=== PATIENT | female | born 1985 | race Caucasian/White ===

== ENCOUNTER 2022-07-02 02:09 | Outpatient (CLI) | payer MEDICAID, SELFPAY ==
--- NOTE | 2022-07-02 09:15 | DI.US_ITS ---
Exam(s) US OB 1ST TRIMESTER EXAM: US OB 1ST TRIMESTER CLINICAL HISTORY: viability check, elderly multigravida 1st trimester, O09.521, Z34.90. COMPARISON: US POCUS EXAM from 06/25/2022 TECHNIQUE: Transabdominal Transvaginal first trimester obstetrical ultrasound performed. FINDINGS: A gestational sac is noted within the endometrial cavity. A pole is noted however appears malf ormed. The crown-rump length measurements correspond to 6 weeks 5 days which is much less than the e xpected 9 weeks 6 days. No cardiac activity is demonstrated. A yolk sac is seen. The cervix appears intact. There is no free fluid. IMPRESSION: Nonviable gestation. DATA REPOSITORY:
== END 2022-07-02 02:29 ==
LOC: DI 02:12
PROVIDERS: Visit Provider Advanced Practice Midwife
DX: O09.521 Supervision of elderly multigravida, first trimester (principal); O36.80X0 Pregnancy with inconclusive fetal viability, not applicable or unspecified; Z3A.01 Less than 8 weeks gestation of pregnancy
CPT/HCPCS: 76801

== ENCOUNTER 2022-07-02 13:55 | Outpatient (CLI) | payer MEDICAID, SELFPAY ==
[2022-07-02 14:34] LABS: HCG Quant, Pregnancy 11104 mIU/mL (1-3)
== END 2022-07-02 13:56 | disposition home or self-care (01) ==
PROVIDERS: Visit Provider Advanced Practice Midwife
DX: O46.91 Antepartum hemorrhage, unspecified, first trimester (principal); O36.4XX0 Maternal care for intrauterine death, not applicable or unspecified
CPT/HCPCS: 36415; 86850; 86900; 86901; 84702

== ENCOUNTER 2022-10-06 09:14 | Outpatient (REF) | payer MEDICAID, SELFPAY ==
--- NOTE | 2022-10-06 08:40 | PAPFT_PTH ---
PATIENT: Shasta Clarke LOC: [facility] U#:[id number] AGE/SX: 37/F ROOM: RE10/06/[address]: Silvana Mcpherson DO : 1985 BED: DIS: 10/06/2022 SPEC #: [id number] RECD: 10/06/22 12:54 STATUS: MARYSE REQ #: [id number] RIVER: 10/06/22 08:[address]: Silvana Mcpherson DEPT: [facility] Cytology RECD BY: Otilia Pena Tissues: 1 - CX/ENDOCX FOR PAP SMEARS Procedures: PAP THIN PREP/UVM Screening HPV DNA PROBE Comments: [id number]
== END 2022-10-06 09:15 | disposition home or self-care (01) ==
LOC: LBN 09:14
PROVIDERS: Visit Provider Obstetrics & Gynecology
DX: Z12.4 Encounter for screening for malignant neoplasm of cervix (principal); Z11.51 Encounter for screening for human papillomavirus (HPV)
CPT/HCPCS: 88142; 87624

== ENCOUNTER 2023-02-06 10:29 | Outpatient (REF) | payer MEDICAID, SELFPAY ==
[2023-02-06 11:57] LABS: *AMPHETAMINES SCREEN URINE Negative (Negative); *BARBITURATES SCREEN URINE Negative (Negative); *BENZODIAZEPINES SCREEN URINE Negative (Negative); Cannabinoids THC Negative (Negative); Cocaine Screen,Urine Negative (Negative); METHADONE URINE SCREEN Negative (Negative); OPIATES URINE SCREEN Negative (Negative)
[2023-02-06 12:01] LABS: Tricyclic Antidepressants Negative (Negative)
[2023-02-07 14:47] LABS: Chlamydia Result Negative (Negative); GC Result Negative (Negative)
[2023-02-11 13:03] LABS: Buprenorphine Negative ng/mL (Cutoff: 5.0); Norbuprenorphine Negative ng/mL (Cutoff: 2.5)
== END 2023-02-06 10:30 | disposition home or self-care (01) ==
LOC: LBN 10:29
PROVIDERS: Visit Provider Advanced Practice Midwife
DX: Z34.92 Encounter for supervision of normal pregnancy, unspecified, second trimester (principal); Z3A.18 18 weeks gestation of pregnancy; Z11.3 Encounter for screening for infections with a predominantly sexual mode of transmission
CPT/HCPCS: 80307; 80348; 87491; 87591; 87086

== ENCOUNTER 2023-02-16 04:40 | Outpatient (CLI) | payer MEDICAID, SELFPAY ==
[2023-02-16 10:17] LABS: Abs Immature Grans 0.04 10^3/uL (0.0-0.06); Absolute Basophil Count 0.05 10^3/uL (0.0-0.2); Absolute Eosinophil Count 0.37 10^3/uL (0.0-0.7); Absolute Lymphocyte Count 2.02 10^3/uL (1.2-3.4); Absolute Neutrophil Count 7.51 10^3/uL (1.2-6.7); Basophils % 0.5; Eosinophils % 3.5; HGB 11.7 g/dL (11.2-15.7); Immature Grans % 0.4; Lymphocytes % 19.3; MCH 32.2 pg (27.0-33.0); MCHC 34.4 % (32.0-36.0); MCV 94 fL (80-95); MPV 9.9 fL (8.0-11.0); Monocytes % 4.8; Neutrophils % 71.5; Platelet Count 302 10^3/uL (130-400); RBC 3.63 10^6/uL (3.93-5.22); RDW 13.4 % (11.7-14.6); RDW-SD 46.3 fL; WBC 10.49 10^3/uL (4.4-10.8)
[2023-02-16 11:02] LABS: ALT 15 U/L (14-59); AST 13 U/L (15-37); Albumin 3.5 g/dL (3.4-5.0); Alkaline Phosphatase 61 U/L (46-116); Anion Gap 8.4 mmol/L (3-11); BUN 7 mg/dL (7-18); Bilirubin, Total 0.3 mg/dL (0.2-1.0); CO2 24.6 mmol/L (21.0-32.0); CREATININE 0.6 mg/dL (0.55-1.02); Calcium 9.7 mg/dL (8.5-10.1); Chloride 103 mmol/L (98-107); Estimated GFR 117.75 (mL/min/1.73m2); Glucose 94 mg/dL (74-106); LDH 130 U/L (81-234); Potassium 3.8 mmol/L (3.5-5.1); Sodium 136 mmol/L (136-145); TSH (W/Ref FT4) 2.42 uIU/mL (0.36-3.74); Total Protein 7.2 g/dL (6.4-8.2)
[2023-02-17 09:21] LABS: Hepatitis B Surface Ag Negative (Negative)
[2023-02-17 10:01] LABS: HIV-1/2 Ag & Ab Screen Negative (Negative)
[2023-02-17 10:13] LABS: Hepatitis C Ab w Rflx HCV PCR Negative (Negative)
[2023-02-17 10:29] LABS: Varicella IgG Antibody Positive (See Note)
[2023-02-17 10:34] LABS: Rubella IgG Ab (UVM) Positive (See Note)
[2023-02-17 21:21] LABS: Syphilis IgG w/Reflex Nonreactive (Nonreactive)
== END 2023-02-16 04:41 | disposition home or self-care (01) ==
LOC: LBO 04:40
PROVIDERS: Visit Provider Advanced Practice Midwife
DX: Z34.91 Encounter for supervision of normal pregnancy, unspecified, first trimester (principal); I10 Essential (primary) hypertension; O09.521 Supervision of elderly multigravida, first trimester; Z34.90 Encounter for supervision of normal pregnancy, unspecified, unspecified trimester
CPT/HCPCS: 36415; 80053; 86787; 86803; 86850; 86900; 86901; 87340; 87389; 83615; 84443; 85025; 86762; 86780

== ENCOUNTER 2023-02-16 13:35 | Outpatient (REF) | payer MEDICAID, SELFPAY ==
[2023-02-16 13:38] LABS: Creatinine,Urine 50.88 mg/dL; PROTEIN 7.1 mg/dL (0.0-11.9)
[2023-02-16 13:40] LABS: Creatinine,24hr Ur 1.42 g/24hr (0.60-1.80); TOTAL PROTEIN,URINE TIMED 202.4 mg/24hr (0.0-149.1); Total Volume 2850 ml
== END 2023-02-16 13:36 | disposition home or self-care (01) ==
LOC: LBN 13:35
PROVIDERS: Visit Provider Advanced Practice Midwife
DX: O09.522 Supervision of elderly multigravida, second trimester (principal); O99.282 Endocrine, nutritional and metabolic diseases complicating pregnancy, second trimester; O16.2 Unspecified maternal hypertension, second trimester; E03.9 Hypothyroidism, unspecified; Z3A.18 18 weeks gestation of pregnancy
CPT/HCPCS: 81050; 82570; 84155

== ENCOUNTER 2023-02-23 02:18 | Outpatient (CLI) | payer MEDICAID, SELFPAY ==
[2023-02-23 08:55] LABS: Glucose,1 Hr (Glucola) 145 mg/dL (80-140)
== END 2023-02-23 02:19 | disposition home or self-care (01) ==
LOC: LBO 02:18
PROVIDERS: Visit Provider Advanced Practice Midwife
DX: O09.522 Supervision of elderly multigravida, second trimester (principal); O99.282 Endocrine, nutritional and metabolic diseases complicating pregnancy, second trimester; Z3A.21 21 weeks gestation of pregnancy
CPT/HCPCS: 36415; 82950

== ENCOUNTER → 2023-03-03 00:45 | Outpatient (CLI) | payer MEDICAID, SELFPAY ==
--- NOTE | 2023-03-03 06:30 | DI.US_ITS ---
Exam(s) US OB 2-3 TRIMESTER EXAM: US OB 2-3 TRIMESTER CLINICAL HISTORY: anatomy,Z34.91. TECHNIQUE: Transabdominal obstetrical ultrasound performed. COMPARISON: US US OB 1ST TRIMESTER from 07/02/2022 FINDINGS: Number of fetuses: One. position: Variable Placental grade: 1 Placental location: Posterior. Low lying placenta, 1.3 cm from the internal os. Cervix: Cervical canal closed 4.5 cm in length. BIOMETRIC DATA: BPD: 50mm = 21+ 0 weeks HC: 197mm = 21+ 6 weeks AC: 180mm = 22+ 6 weeks FL: 38mm = 22+1 weeks Cisterna Magna: 5 mm Cerebellum: 2 cm EFW: 503 grms 51% Composite Age: 22+2 weeks EDC by US: July 24 Heart Rate: 136BPM Amniotic fluid : Amount of fluid is within normal limits. ANATOMICAL SURVEY: Four-chambered heart: Unremarkable. LVOT: Unremarkable. RVOT: Not well seen. Left-sided stomach: Unremarkable. urinary bladder: Unremarkable. Bilateral kidneys: Unremarkable. Three-vessel cord: Unremarkable. Cord insertion: Unremarkable. Posterior fossa:Unremarkable. ventricles: Unremarkable. nose: Unremarkable. lips: Unremarkable. palate: Unremarkable. spine: Unremarkable. Two arms and two legs: Unremarkable. IMPRESSION: 1. Single live intrauterine measuring 22+ 2 weeks. 2. Normal anatomic survey. RVOT not well seen patient to return March 23 for additional im aging. 3. Low lying placenta. DATA REPOSITORY:
== END ==
PROVIDERS: Visit Provider Advanced Practice Midwife
DX: Z34.91 Encounter for supervision of normal pregnancy, unspecified, first trimester (principal)
CPT/HCPCS: 76805

== ENCOUNTER → 2023-03-09 03:05 | Outpatient (CLI) | payer MEDICAID, SELFPAY ==
--- NOTE | 2023-03-09 07:46 | DI.US_ITS ---
Exam(s) US OB F/U FACIAL/LVOT/RVOT EXAM: US OB F/U FACIAL/LVOT/RVOT CLINICAL HISTORY: f/u placenta from os,O44.42 AND DVOT. COMPARISON: US US OB 2-3 TRIMESTER from 03/03/2023 TECHNIQUE: Transabdominal obstetrical ultrasound performed. FINDINGS: Sonographic images demonstrate a single intrauterine gestation in variable position. heart rate motion is Dopplered at: 145 bpm. Four-chamber view, LV OT and RVOT were seen. nose/lips: Unremarkable. Placenta: Posterior. Placental tip measures 1.6 cm from the internal os. Amniotic fluid: Amount of fluid is within normal limits. IMPRESSION: Low lying placenta, 1.6 cm from the internal os. DATA REPOSITORY:
== END ==
PROVIDERS: Visit Provider Advanced Practice Midwife
DX: O44.42 Low lying placenta NOS or without hemorrhage, second trimester (principal)
CPT/HCPCS: 76815

== ENCOUNTER 2023-03-25 03:34 | Outpatient (CLI) | payer MEDICAID, SELFPAY ==
[2023-03-25 09:01] LABS: Glucose 1 Hour 112 mg/dL
[2023-03-25 11:19] LABS: Glucose 3 Hour 71 mg/dL
== END 2023-03-25 03:35 | disposition home or self-care (01) ==
LOC: LBO 03:35
PROVIDERS: Advanced Practice Midwife; Visit Provider Obstetrics & Gynecology
DX: Z34.92 Encounter for supervision of normal pregnancy, unspecified, second trimester (principal); I10 Essential (primary) hypertension
CPT/HCPCS: 36415; 82951; 84443

== ENCOUNTER → 2023-04-13 00:46 | Outpatient (CLI) | payer MEDICAID, SELFPAY ==
--- NOTE | 2023-04-13 06:45 | DI.US_ITS ---
Exam(s) US OB KORY WEIGHT EXAM: US OB KORY WEIGHT CLINICAL HISTORY: growth,f/u low lying placenta,O44.42,hypertension,I10. TECHNIQUE: Transabdominal obstetrical ultrasound performed. COMPARISON: US US OB 2-3 TRIMESTER from 03/03/2023 US US OB F/U FACIAL/LVOT/RVOT from 03/09/2023 FINDINGS:: Number of fetuses: One. position: Transverse with head toward maternal right Placental location: Posterior. No evidence of previa. Placental tip from maternal os measures 4.2 c m. BIOMETRIC DATA: BPD: 69mm = 27+ 6 weeks HC: 255mm = 27+ 5 weeks AC: 227mm = 27+ 1 weeks FL: 51 mm = 27+ 1 weeks EFW: 1041 Gms = 11% Composite Age: 27+ 3 weeks KATHLEEN: 10 July 2023 Heart Rate: 153BPM Amniotic fluid index: 17.7 cm. Amount of fluid is visually within normal limits. IMPRESSION: size and weight are within the low normal range. No evidence of placenta previa. DATA REPOSITORY:
== END ==
PROVIDERS: Visit Provider Obstetrics & Gynecology
DX: I10 Essential (primary) hypertension (principal); O44.42 Low lying placenta NOS or without hemorrhage, second trimester
CPT/HCPCS: 76816

== ENCOUNTER → 2023-05-11 02:35 | Outpatient (CLI) | payer MEDICAID, SELFPAY ==
--- NOTE | 2023-05-11 07:45 | DI.US_ITS ---
Exam(s) US OB KORY WEIGHT EXAM: US OB KORY WEIGHT CLINICAL HISTORY: assess growth and KORY,hypertension,gest diabetes. TECHNIQUE: Transabdominal obstetrical ultrasound performed. COMPARISON: US US OB KORY WEIGHT from 04/13/2023 FINDINGS:: Number of fetuses: One. position: Vertex. Placental location: Posterior. No evidence of previa. BIOMETRIC DATA: BPD: 76mm = 30+ 5 weeks HC: 283mm = 31+ 0 weeks AC: 282mm = 32+1 weeks FL: 57 mm = 29+ 5 weeks EFW: 1721 Gms = 13% Composite Age: 30+ 6 weeks, slightly below expected range. KATHLEEN: 14 July 2023 Heart Rate: 137BPM Amniotic fluid index: 10.1 cm. Amount of fluid is visually within normal limits. IMPRESSION: size measuring slightly below expected range for predicted gestational age. DATA REPOSITORY:
== END ==
PROVIDERS: Visit Provider Obstetrics & Gynecology Gynecology
DX: I10 Essential (primary) hypertension (principal); O24.410 Gestational diabetes mellitus in pregnancy, diet controlled
CPT/HCPCS: 76816

== ENCOUNTER 2023-05-18 05:31 | Outpatient (CLI) | payer MEDICAID, SELFPAY ==
[2023-05-18 08:55] VITALS: BP 115/59; PULSE 64
--- NOTE | 2023-05-18 15:34 | W.OBNST ---
Date of service: 05/18/23 Time of Service: 09:00 NST Evaluation Reason for NST Reasons for Nonstress Test: CHRONIC HYPERTENSION Gestational Age Gestational Age in Weeks and Days: 33 Weeks and 2Days Test and Monitor Explained Test/Monitor Explained: Test Explained and Monitor Explained NST Information Date on Monitor: 05/18/23 Time on Monitor: 08:54 Date off Monitor: 05/18/23 Time off Monitor: 09:13 Total Time on Monitor: 19 NST Interventions: None NST Evaluation Patient States Movement: Present FHR Baseline: 135 Variability: Moderate 6-25 bpm Accelerations: 15x15 Decelerations: None NST Results: Reactive Note Ultrasound Done: N/A. NST Note NST Reviewed and Verified by: Lucinda Cedeno
== END 2023-05-18 09:20 | disposition home or self-care (01) ==
LOC: BCD 05:37 → OBS 08:48
PROVIDERS: Visit Provider Obstetrics & Gynecology
DX: O13.3 Gestational [pregnancy-induced] hypertension without significant proteinuria, third trimester (principal); Z3A.33 33 weeks gestation of pregnancy
CPT/HCPCS: 59025

== ENCOUNTER 2023-05-27 06:36 | Outpatient (CLI) | payer MEDICAID, SELFPAY ==
[2023-05-27 10:00] VITALS: BP 148/86; PULSE 78; TEMP 37
[2023-05-27 10:11] VITALS: BP 148/86; PULSE 78
[2023-05-27 10:25] VITALS: BP 155/89; PULSE 79
--- NOTE | 2023-06-03 14:20 | W.OBNST ---
Date of service: 05/27/23 Time of Service: 10:00 NST Evaluation Reason for NST Reasons for Nonstress Test: GESTATIONAL HYPERTENSION Gestational Age Gestational Age in Weeks and Days: 34 Weeks and 6Days Test and Monitor Explained Test/Monitor Explained: Test Explained, Monitor Explained and Patient Verbalized Understanding Vital Signs Blood Pressure: 148/86 Pulse: 78 Temperature: 98.6 F NST Information Date on Monitor: 05/27/23 Time on Monitor: 09:55 Date off Monitor: 05/27/23 Time off Monitor: 10:30 Total Time on Monitor: 35 NST Interventions: None NST Evaluation Patient States Movement: Present FHR Baseline: 135 Variability: Moderate 6-25 bpm Accelerations: 15x15 Decelerations: None NST Results: Reactive Note Ultrasound Done: N/A. NST Note Note: Elevated BP - will return thursday for repeat check NST Reviewed and Verified by: Lucinda Cedeno
[2023-06-03 14:21] VITALS: BP 148/86; PULSE 78; TEMP 37
== END 2023-05-27 10:34 | disposition home or self-care (01) ==
LOC: BCD 06:37 → OBS 09:59
PROVIDERS: Visit Provider Obstetrics & Gynecology
DX: O24.410 Gestational diabetes mellitus in pregnancy, diet controlled (principal); Z3A.34 34 weeks gestation of pregnancy
CPT/HCPCS: 59025

== ENCOUNTER 2023-05-29 08:59 | Outpatient (CLI) | payer MEDICAID, SELFPAY ==
[2023-05-29 11:53] VITALS: BP 125/67; PULSE 67; TEMP 36.6
[2023-05-29 11:55] VITALS: BP 125/67; PULSE 67
[2023-05-29 12:10] VITALS: BP 128/75; PULSE 67
--- NOTE | 2023-05-29 17:24 | W.OBNST ---
Date of service: 05/29/23 Time of Service: 12:00 NST Evaluation Reason for NST Reasons for Nonstress Test: GESTATIONAL HYPERTENSION Gestational Age Gestational Age in Weeks and Days: 34 Weeks and 6Days Test and Monitor Explained Test/Monitor Explained: Test Explained Vital Signs Blood Pressure: 125/67 Pulse: 67 Temperature: 97.9 F NST Information Date on Monitor: 05/29/23 Time on Monitor: 11:47 Date off Monitor: 05/29/23 Time off Monitor: 12:15 Total Time on Monitor: 28 NST Interventions: None NST Evaluation Patient States Movement: Present FHR Baseline: 155 Variability: Moderate 6-25 bpm Accelerations: 15x15 Decelerations: None NST Results: Reactive Note Ultrasound Done: N/A. NST Note Note: Pt was here at 34.6wks for BP check due to a mildly elevated BP at her NST visit 2 days ago. She has CHTN. BP normal x2 today. Will return for repeat NST next week. NST Reviewed and Verified by: Lucinda Cedeno
[2023-05-29 17:26] VITALS: BP 125/67; PULSE 67; TEMP 36.6
== END 2023-05-29 12:15 | disposition home or self-care (01) ==
LOC: BCD 09:00 → OBS 11:46
PROVIDERS: Visit Provider Obstetrics & Gynecology
DX: O10.013 Pre-existing essential hypertension complicating pregnancy, third trimester (principal); Z3A.36 36 weeks gestation of pregnancy
CPT/HCPCS: 59025

== ENCOUNTER 2023-06-03 15:44 | Outpatient (CLI) | payer MEDICAID, SELFPAY ==
[2023-06-03 16:34] VITALS: BP 121/70; PULSE 94; TEMP 36.9
[2023-06-03 16:46] VITALS: BP 121/70; PULSE 94; TEMP 36.9
== END 2023-06-03 16:38 | disposition home or self-care (01) ==
LOC: BCD 15:48 → OBS 16:10
PROVIDERS: Visit Provider Obstetrics & Gynecology Gynecology
DX: O10.013 Pre-existing essential hypertension complicating pregnancy, third trimester (principal); Z3A.36 36 weeks gestation of pregnancy
CPT/HCPCS: 87081

== ENCOUNTER 2023-06-08 06:40 | Outpatient (CLI) | payer MEDICAID, SELFPAY ==
[2023-06-08 08:57] VITALS: BP 141/84; PULSE 74; TEMP 36.8
[2023-06-08 09:10] VITALS: BP 141/84; PULSE 74
--- NOTE | 2023-06-08 09:51 | W.OBNST ---
Date of service: 06/08/23 Time of Service: 09:52 NST Evaluation Reason for NST Reasons for Nonstress Test: CHRONIC HYPERTENSION Gestational Age Gestational Age in Weeks and Days: 36 Weeks and 2Days Test and Monitor Explained Test/Monitor Explained: Test Explained Vital Signs Blood Pressure: 141/84 Pulse: 74 Temperature: 98.2 F NST Information Date on Monitor: 06/08/23 Time on Monitor: 09:00 Date off Monitor: 06/08/23 Time off Monitor: 09:39 Total Time on Monitor: 39 NST Interventions: None NST Evaluation Patient States Movement: Present FHR Baseline: 145 Variability: Moderate 6-25 bpm Accelerations: 15x15 Decelerations: None NST Results: Reactive Note Ultrasound Done: N/A. NST Note Note: Category 1, reactive NST. Irregular contractions. NST Reviewed and Verified by: Silvana Mcpherson
[2023-06-08 09:52] VITALS: BP 141/84; PULSE 74; TEMP 36.8
== END 2023-06-08 09:42 | disposition home or self-care (01) ==
LOC: BCD 06:41 → OBS 08:55
PROVIDERS: Visit Provider Obstetrics & Gynecology
DX: O10.013 Pre-existing essential hypertension complicating pregnancy, third trimester (principal); Z3A.36 36 weeks gestation of pregnancy
CPT/HCPCS: 59025

== ENCOUNTER 2023-06-08 13:48 | Outpatient (CLI) | payer MEDICAID, SELFPAY ==
[2023-06-08 09:52] LABS: HCT 36.6 % (36.0-46.0); HGB 12.3 g/dL (11.2-15.7); MCH 31.3 pg (27.0-33.0); MCHC 33.6 % (32.0-36.0); MCV 93 fL (80-95); MPV 9.9 fL (8.0-11.0); Platelet Count 255 10^3/uL (130-400); RBC 3.93 10^6/uL (3.93-5.22); RDW 13.4 % (11.7-14.6); RDW-SD 45.9 fL; WBC 11.89 10^3/uL (4.4-10.8)
== END 2023-06-08 13:49 | disposition home or self-care (01) ==
LOC: LBO 13:48
PROVIDERS: Visit Provider Obstetrics & Gynecology Gynecology
DX: O13.3 Gestational [pregnancy-induced] hypertension without significant proteinuria, third trimester (principal); Z3A.36 36 weeks gestation of pregnancy
CPT/HCPCS: 36415; 85027

== ENCOUNTER 2023-06-21 20:36 | Inpatient (IN) | payer MEDICAID, SELFPAY ==
[2023-06-21 19:52] VITALS: BP 139/71; PULSE 70; TEMP 36.6
[2023-06-21 20:12] VITALS: BP 139/71; PULSE 70; TEMP 36.6
[2023-06-21 21:04] LABS: HCT 34.6 % (36.0-46.0); HGB 11.7 g/dL (11.2-15.7); MCH 31.3 pg (27.0-33.0); MCHC 33.8 % (32.0-36.0); MCV 93 fL (80-95); MPV 10.3 fL (8.0-11.0); Platelet Count 258 10^3/uL (130-400); RBC 3.74 10^6/uL (3.93-5.22); RDW 13.4 % (11.7-14.6)
[2023-06-21] MEDS: miSOPROStol 50 MCG TAB PO (21:21)
[2023-06-21 22:15] VITALS: BP 141/72; PULSE 62; TEMP 36.6
[2023-06-21 23:22] VITALS: BP 121/64; PULSE 60; TEMP 36.4
[2023-06-22] VITALS (110 sets, daily range): BP systolic 110–165; BP diastolic 62–87; PULSE 0–89; RESP 16; TEMP 36.5–36.8
[2023-06-22] MEDS: miSOPROStol 25 MCG TAB PO ×2 (01:28→05:42)
[2023-06-22] MEDS: Levothyroxine 150 MCG TAB PO (05:49)
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
[2023-06-22] MEDS: Lactated Ringers 1,000 ML 125 ML IV (09:44)
[2023-06-22] MEDS: Labetalol 100 MG TAB PO ×2 (09:44→20:37)
[2023-06-22] MEDS: Oxytocin/Normal Saline 30 UNITS/500 ML BAG IV (09:50)
--- NOTE | 2023-06-22 12:37 | W.PM.OBNL1 ---
Date of service: 06/22/23 Time of Service: 12:37 Informed Consent Informed Consent: Induction of Labor and Risk,Benefits,Alternatives Discussed Pelvic Exam Comments: SVE deferred. Contractions Monitor Mode: External Contraction Frequency(min): 2-3 Contraction Duration(sec): 50 Intensity: Mild/Moderate Fetus A Monitor: External (US) Heart Rate Baseline: 140 Variability: Marked (>25 BPM) Categories: Category I FHR Rhythm: Regular Characteristics: Normal Accelerations: 15 X 15 Decelerations: None Amniotic Membrane Status: Intact Assessment and Plan Assessment and plan (1) Encounter for induction of labor: Status: Acute Assessment and plan: Oxytocin infusion underway. Contractions well-tolerated by patient heart rate category 1. Objective Abnormal lab results 06/21/23 Range/Units 20:50 WBC 11.10 H (4.4-10.8) 10^3/uL RBC 3.74 L (3.93-5.22) 10^6/uL Hct 34.6 L (36.0-46.0) % Temp Pulse Resp BP 98.2 F 63 16 135/74 06/22/23 11:32 06/22/23 12:36 06/22/23 11:32 06/22/23 11:32 Laboratory Results WBC 11.10 10^3/uL (4.4-10.8) H 06/21/23 20:50 RBC 3.74 10^6/uL (3.93-5.22) L 06/21/23 20:50 Hgb 11.7 g/dL (11.2-15.7) 06/21/23 20:50 Hct 34.6 % (36.0-46.0) L 06/21/23 20:50 MCV 93 fL (80-95) 06/21/23 20:50 MCH 31.3 pg (27.0-33.0) 06/21/23 20:50 MCHC 33.8 % (32.0-36.0) 06/21/23 20:50 RDW 13.4 % (11.7-14.6) 06/21/23 20:50 Plt Count 258 10^3/uL (130-400) 06/21/23 20:50 MPV 10.3 fL (8.0-11.0) 06/21/23 20:50 Patient ABO/Rh A Positive 06/21/23 20:50 Antibody Screen NEGATIVE 06/21/23 20:50 Vital Signs Reviewed: Yes Objective Narrative Objective Narrative: Patient comfortable tolerating contractions. Plan is to continue with oxytocin infusion. Subjective Interval history since last seen: Oxytocin infusion initiated this morning. Patient reports feeling more uncomfortable with regular contractions. Contraction discomfort is tolerable at this time. She has no plans for an epidural Interventions Augmentation , Pitocin rate (mU/min): 8 After cervical ripening with Misoprostil. . Results Hemoglobin/Hematocrit: Hgb 11.7 g/dL (11.2-15.7) 06/21/23 20:50 Hct 34.6 % (36.0-46.0) L 06/21/23 20:50 Abnormal Lab Findings: Abnormal Labs 06/21/23 20:50 WBC 11.10 H RBC 3.74 L Hct 34.6 L
--- NOTE | 2023-06-22 17:00 | PLAC_PTH ---
PATIENT: Shasta Clarke LOC: [facility] U#:[id number] AGE/SX: 38/F ROOM: OBS.301 RE06/21/[address]: Lucinda Cedeno MD : 1985 BED: A DIS: 06/23/2023 SPEC #: [id number] RECD: 06/23/23 11:53 STATUS: MARYSE REQ #: [id number] RIVER: 06/22/23 17:[address]: Nena Ruano DEPT: Surgical Specimen RECD BY: Otilia Pena ENTERED: 06/23/23 11:54 SP TYPE: PLAC OTHR DR: Lucinda Cedeno MD Tissues: 1 - PLACENTA (3RD TRIMESTER) Procedures: GROSS AND MICRO LEVEL 5 Comments: [id number]
[2023-06-23 02:57] VITALS: BP 115/59; PULSE 68; TEMP 36.7
--- NOTE | 2023-06-23 03:11 | NUR.NOTE ---
Nursing Note: Patient admitted to center on 06/21 at approximately 1940 for induction of labor with misoprostol per verbal orders from .
[2023-06-23] MEDS: Levothyroxine 150 MCG TAB PO (06:06)
[2023-06-23 06:10] VITALS: BP 130/85; PULSE 75; TEMP 36.8
[2023-06-23 08:04] VITALS: BP 119/70; PULSE 73; TEMP 36.6
[2023-06-23] MEDS: Cyanocobalamin 100 MCG TABLET PO (08:07)
[2023-06-23] MEDS: Cholecalciferol (Vitamin D3) 1,000 UNIT TAB 2000 UNITS PO (08:07)
[2023-06-23] MEDS: Labetalol 100 MG TAB PO (08:07)
--- NOTE | 2023-06-23 08:14 | W.OBDELIVERY ---
Date of service: 06/23/23 Time of Service: 08:18 OB Labor/ Delivery Information Baby A Delivery Delivery Method: Spontaneaous Presentation: Cephalic Cephalic Position: Vertex Cord Description-Baby A: 3 Vessels Cord Description Comment: normal Amniotic Fluid: Clear Estimated Blood Loss: 100 Delivery Outcome: Liveborn Transferred: Remains with Mother Providers Doctor: Nena Ruano Nurse: Billie Latif Labor/Delivery Information Number of Babies in Womb: 1 Steroids Given: None Reason Steroids Not Administered: N/A Group Beta Strep: Negative Antibiotics Administered: No Rubella Status: Immune Blood Type: A+ Varicella Immunity: Immune Maternal Complications: None Shoulder Dystocia: No Stages of Labor Complete Dilatation Date: 06/22/23 Complete Dilatation Time: 17:10 ROM Baby A: 06/22/23 ROM Baby A: 13:50 ROM Total Time- Baby A: [id number] Infant Delivery Date-Baby A: 06/22/23 Delivery Time-Baby A: 17:15 Labor Stage 2 Duration: 5 minutes Placenta Delivery Date-Baby A: 06/22/23 Placenta Delivery Time-Baby A: 17:26 Labor-Stage 3 Duration: 11 minutes Placenta Cultured: No Placenta Status: Delivered Baby A Infant Gender: Male Gestational Status: Early Term (37-38.6 wks) Gestational Age in Weeks/Days: 38 Weeks and 2 Days Score-1 Minute Interval(Baby A) Heart Rate-1 minute: 100 BPM or Greater Respiratory Effort- 1 minute: Spontaneous/Strong Cry Muscle Tone-1 minute: Active Movement Reflex Response-1 minute: Prompt Response Color-1 minute: Pallor or Cyanosis Total Score-1 minute: 8 Score-5 Minute Interval(Baby A) Heart Rate- 5 minute: 100 BPM or Greater Respiratory Effort-5 minute: Spontaneous/Strong Cry Muscle Tone-5 minute: Active Movement Reflex Response-5 minute: Prompt Response Color-5 minute: Bluish Hands or Feet Total Score- 5 minute: 9 Note: Infant will be named Venu Hamilton
--- NOTE | 2023-06-23 08:57 | W.PM.OBPNV1 ---
Date of service: 06/23/23 Time of Service: 08:57 Assessment and Plan Assessment and plan (1) (spontaneous vaginal delivery): Status: Acute Assessment and plan: PPD s/p uncomplicated . Pt successfully. I have recommended that she stop the Labetalol when she is discharged to home and return to the [facility] on 06/26/23 for BP check. Pt requests discharge to home later today after OK from Peds provider. Subjective Subjective Interval history: PPD1 over intact perineum after IOL for chronic hypertension. Male who will be named Venu Hamilton. Did well overnight. successfully . Received Labetalol dose this am. Pt would like discharge this afternoon. Patient comments: No complaints, Pain well controlled and Tolerating diet Patient's Mood: Good. [place] baby status: Doing well, Nursing well, Rooming in and Strong Bonding Observed feeding status: Exclusively breast feeding Exam Physical Exam Vital signs: Temp Pulse Resp BP 97.8 F 73 16 119/70 06/23/23 08:04 06/23/23 08:04 06/22/23 20:06 06/23/23 08:04 Vital Signs Reviewed: Yes Constitutional Constitutional: no acute distress HEENT Exam HEENT Exam: Not Done Neck Exam Neck Exam: Normal Respiratory Exam Respiratory Exam: Normal Cardiovascular Exam Cardiovascular Exam: Normal Abdominal Exam Abdomen: Tender Fundal Exam Fundus: Below Umbilicus and Firm Rectal Exam Rectal Exam: Not Done Extremities Exam Extremity Exam: Normal Back/Spine/Pelvis Exam Back Exam: Normal Skin Exam Skin Exam: Normal Neurological Exam Neurological Exam: Normal Psychiatric Exam Psychiatric Exam: Normal Results Hemoglobin/Hematocrit: Hgb 11.7 g/dL (11.2-15.7) 06/21/23 20:50 Hct 34.6 % (36.0-46.0) L 06/21/23 20:50 Abnormal Lab Findings: Abnormal Labs 06/21/23 20:50 WBC 11.10 H RBC 3.74 L Hct 34.6 L
[2023-06-23 09:01] VITALS: BP 139/71; PULSE 70; TEMP 36.6
--- NOTE | 2023-06-23 09:01 | W.OBNST ---
Date of service: 06/21/23 Time of Service: 20:00 NST Evaluation Reason for NST Reasons for Nonstress Test: GESTATIONAL HYPERTENSION Gestational Age Gestational Age in Weeks and Days: 38 Weeks and 1Days Test and Monitor Explained Test/Monitor Explained: Test Explained, Monitor Explained and Patient Verbalized Understanding Vital Signs Blood Pressure: 139/71 Pulse: 70 Temperature: 97.9 F NST Information Date on Monitor: 06/21/23 Time on Monitor: 19:46 Date off Monitor: 06/21/23 Time off Monitor: 20:12 Total Time on Monitor: 26 NST Interventions: None NST Evaluation Patient States Movement: Present FHR Baseline: 130 Variability: Moderate 6-25 bpm Accelerations: 15x15 Decelerations: None NST Results: Reactive Note Ultrasound Done: N/A. NST Note NST Reviewed and Verified by: Lucinda Cedeno
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
[2023-06-23 12:07] VITALS: BP 129/70; PULSE 70; RESP 16; TEMP 36.8
[2023-06-23 17:34] VITALS: BP 140/88; PULSE 78; RESP 16; TEMP 36.7
== END 2023-06-23 19:18 | disposition home or self-care (01) | DRG 807 ==
LOC: BCD 21:00 → OBS 21:00
PROVIDERS: Admitting Provider Obstetrics & Gynecology; Visit Provider Obstetrics & Gynecology
DX: O10.02 Pre-existing essential hypertension complicating childbirth (principal); Z37.0 Single live birth; O24.420 Gestational diabetes mellitus in childbirth, diet controlled; Z3A.38 38 weeks gestation of pregnancy; O75.89 Other specified complications of labor and delivery; E78.00 Pure hypercholesterolemia, unspecified; O99.284 Endocrine, nutritional and metabolic diseases complicating childbirth
CPT/HCPCS: 36415; 85027; 86850; 86900; 86901; 88307; J3490

== ENCOUNTER 2025-03-08 02:20 | Outpatient (CLI) | payer MEDICAID, SELFPAY ==
--- NOTE | 2025-03-08 | DI.MAMMO_ITS ---
Exam(s) MAMMO SCREENING EXAM: MAMMO SCREENING CLINICAL HISTORY: SCREENING, Z12.31 TECHNIQUE: Bilateral full field digital CC and MLO mammographic images were obtained with 3D tomosynthesis and utilizing computer aided detection (CAD). COMPARISON: This is a baseline examination. FINDINGS: Masses/Architectural Distortion: No suspicious masses or areas of architectural distortion are present. There is a partially obscured area of nodularity 10 cm from the nipple in the upper outer quadrant of the left breast. Microcalcifications: No suspicious pleomorphic-type are seen. Skin Thickening/Nipple Retraction: None. IMPRESSION: 1. Ovoid area of breast tissue in the upper outer quadrant of the left breast. This area should be further evaluated. 2. Spot compression views are requested. Ultrasound may be indicated at that time. 3. Findings were discussed with Jamel Ribeiro at 10:20 a.m. on 03/10/2025. BI-RADS Category 0 - Incomplete: Need additional imaging evaluation Breast Density - Category C - The breast are heterogeneously dense, which may obscure small masses. Breast density Category C or D implies that the patient has dense breast tissue. Dense breast tissue can make it harder to find cancer on a mammogram. Dense breast tissue is also associated with an increased risk of breast cancer. This information about the result of the mammogram report was provided to the patient to raise their awareness. Use this report when you speak with the patient about their risks for breast cancer, which includes their family history. At that time, you may recommend additional screening tests (Ultrasound or MRI) as these tests may add significant information. A negative radiographic report should not delay biopsy if a dominant or clinically suspicious mass is present. Up to ten percent of cancers are not identified on mammography. A negative report may reinforce clinical impression. Adenosis and dense breasts may obscure an underlying neoplasm. False positive reports average 6 to 10%. Patient will receive a letter notifying them of these results.
== END 2025-03-08 02:40 ==
LOC: DI 02:20
DX: Z12.31 Encounter for screening mammogram for malignant neoplasm of breast (principal)
CPT/HCPCS: 77063; 77067

== ENCOUNTER 2025-03-22 01:27 | Outpatient (CLI) | payer MEDICAID, SELFPAY ==
--- NOTE | 2025-03-22 09:57 | DI.MAMMO_ITS ---
Exam(s) MG MAMMO SCREEN CALL BACK UNI US BREAST LT COMPLETE EXAM: MG MAMMO SCREEN CALL BACK UNI and U/S breast LT complete CLINICAL HISTORY: OVOID AREA BREAST TISSUE UPPER OUTER QUAD LT BREAST R92.8 ABNL MAMMO. TECHNIQUE: Craniocaudal and mediolateral oblique Full Field Digital Mammography views of the left breast with Computer Aided Diagnosis followed by Tomosynthesis and complete left breast ultrasound. All 4 quadrants, the left axilla and left retroareolar region were evaluated sonographically. COMPARISON: Comparison is made with baseline examination. FINDINGS: Mammography/Tomosynthesis: Masses/Architectural Distortion: There is again seen dense breast tissue in the upper outer quadrant of the left breast. No mass or area of architectural distortion is identified. Microcalcifictions: No suspicious pleomorphic-type are seen. Skin Thickening/Nipple Retraction: None. Complete left breast US: Echotexture: There is dense fibroglandular tissue seen at the upper outer quadrant of the left breast. Shadowing: No suspicious foci. Cyst: None. Solid lesions: None seen. Ductal dilation: None. IMPRESSION: 1. No evidence of malignancy is noted. 2. Unless there is more urgent need, follow-up screening mammography is recommended, as per [place] [employer] guidelines. 3. The findings were discussed with the patient on the date of the examination. BI-RADS Category 1 - Negative Breast Density - Category C - The breast are heterogeneously dense, which may obscure small masses. Breast density Category C or D implies that the patient has dense breast tissue. Dense breast tissue can make it harder to find cancer on a mammogram. Dense breast tissue is also associated with an increased risk of breast cancer. This information about the result of the mammogram report was provided to the patient to raise their awareness. Use this report when you speak with the patient about their risks for breast cancer, which includes their family history. At that time, you may recommend additional screening tests (Ultrasound or MRI) as these tests may add significant information. A negative radiographic report should not delay biopsy if a dominant or clinically suspicious mass is present. Up to ten percent of cancers are not identified on mammography. A negative report may reinforce clinical impression. Adenosis and dense breasts may obscure an underlying neoplasm. False positive reports average 6 to 10%. Patient will receive a letter notifying them of these results.
== END 2025-03-22 01:47 ==
DX: Z12.31 Encounter for screening mammogram for malignant neoplasm of breast (principal); N63.21 Unspecified lump in the left breast, upper outer quadrant
CPT/HCPCS: 76642; 77063; 77067

== ENCOUNTER 2025-05-04 13:51 | Outpatient (REF) | payer MEDICAID, SELFPAY ==
[2025-05-04 16:40] LABS: Hemoglobin A1C 5.0 % (<5.7)
[2025-05-04 16:59] LABS: Cholesterol 240 mg/dL (<200); HDL Cholesterol 88 mg/dL (>40)
[2025-05-04 17:04] LABS: TSH (W/Ref FT4) 1.59 uIU/mL (0.55-4.78)
== END 2025-05-04 13:52 | disposition home or self-care (01) ==
LOC: NCHCN 13:51
DX: E03.9 Hypothyroidism, unspecified (principal); Z01.89 Encounter for other specified special examinations
CPT/HCPCS: 80061; 83036; 84443